=== PATIENT | male | born 1940 | race Caucasian/White ===

== ENCOUNTER 2017-07-08 00:33 | Inpatient (IN) | payer MEDICARE ==
[~2017-07-08] VITALS: Ht 180.3 cm; Wt 65.0 kg
[~2017-07-08 00:33] MED LIST: no home meds
[2017-07-08] MEDS ORDERED: SODIUM CHLORIDE 0.9% 1,000 ML IV ONE (01:13)
[2017-07-08] MEDS ORDERED: ONDANSETRON 2MG/ML, 2ML ONE (01:27)
[2017-07-08] MEDS ORDERED: LORazepam 2 MG/ML, 1ML ONE (01:28)
[2017-07-08] MEDS ORDERED: ONDANSETRON 2MG/ML, 2ML IVPush ONE (01:30)
[2017-07-08] MEDS ORDERED: SODIUM CHLORIDE FLUSH 10ML SYR IVF ONE (01:30)
[2017-07-08] MEDS ORDERED: LORazepam 2 MG/ML, 1ML IVPush ONE (01:30)
[2017-07-08] MEDS ORDERED: LEVO25PO PO (02:13)
[2017-07-08] MEDS ORDERED: CHEMO MED PO (02:13)
[2017-07-08 02:19] LABS: HEMATOCRIT 43.1 % (39.2-51.8); HEMOGLOBIN 14.4 g/dL (13.7-18.0); WHITE BLOOD COUNT 6.4 x10^3/uL (3.4-10)
[2017-07-08 02:29] LABS: BLOOD UREA NITROGEN 13 mg/dL (7-18)
[2017-07-08 03:32] VITALS: BP 130/73
[2017-07-08 07:49] VITALS: BP 127/71
[2017-07-08 13:58] VITALS: BP 119/71
[2017-07-08] MEDS ORDERED: ENOXAPARIN 40 MG/0.4 ML SQ SCH (19:30)
[2017-07-08] MEDS ORDERED: DOCUSATE 100 MG CAPSULE PO PRN (19:30)
[2017-07-08] MEDS ORDERED: PLEASE ENTER ALLERGIES MC SCH ×2 (19:30)
[2017-07-08] MEDS ORDERED: ONDANSETRON ODT 4 MG PO PRN (19:30)
[2017-07-08] MEDS ORDERED: ACETAMINOPHEN 325 MG TABLET PO PRN (19:30)
[2017-07-08 19:49] VITALS: BP 123/77
[2017-07-08] MEDS: LORazepam 1MG TABLET PO PRN (19:59)
[2017-07-09 01:44] VITALS: BP 110/60
[2017-07-09 07:17] VITALS: BP 141/70
[2017-07-09] MEDS: LORazepam 1MG TABLET PO PRN (08:26)
[2017-07-11] MEDS ORDERED: CARB1TAB44 PO (16:03)
[2017-07-11] MEDS ORDERED: CARB1TAB22 PO (16:03)
== END 2017-07-09 12:31 | disposition left against medical advice (07) | DRG 92 ==
LOC: ED 00:56 → EDIP 03:24 → 4NOR 03:26
PROVIDERS: ADMIT Surgery; ATTEND Surgery
DX: T85.113A Breakdown (mechanical) of implanted electronic neurostimulator, generator, initial encounter (principal); C19 Malignant neoplasm of rectosigmoid junction; G20 Parkinson's disease; C61 Malignant neoplasm of prostate; F41.9 Anxiety disorder, unspecified; G25.0 Essential tremor; Z85.038 Personal history of other malignant neoplasm of large intestine; Z85.46 Personal history of malignant neoplasm of prostate; Z87.891 Personal history of nicotine dependence; Z93.3 Colostomy status
CPT/HCPCS: 36415; 80048; 82040; 85025; 96374; 96375; J1650; J2405; J2060; J7030

== ENCOUNTER 2017-07-13 11:03 | Observation (INO) | payer MEDICARE ==
[~2017-07-13] VITALS: Ht 180.3 cm; Wt 64.8 kg
[~2017-07-13 11:03] MED LIST changes: +BACITRACIN 50,000 UNIT ONE; +BACITRACIN OINT 500U/GM, 15 GM ONE; +BUPIVACAINE/PF 0.5% ONE; +CARB1TAB22 PO; +CARB1TAB44 PO; +CHEMO MED PO; +EPINEPHRINE 1 MG/ML, 1ML ONE; +LEVO25PO PO; +THROMBIN 5,000 UNIT VIAL TP ONE
[2017-07-13] MEDS ORDERED: LACTATED RINGERS 1,000 ML IV SCH (11:54)
[2017-07-13] MEDS ORDERED: FENTANYL PF 100 MCG/2ML ONE (13:49)
[2017-07-13] MEDS ORDERED: ONDANSETRON 2MG/ML, 2ML ONE (13:51)
[2017-07-13] MEDS ORDERED: CEFAZOLIN 1,000 MG ONE (13:51)
[2017-07-13] MEDS ORDERED: DEXAMETHASONE 4 MG/ML, 1ML ONE (13:51)
[2017-07-13] MEDS ORDERED: PROPOFOL 10 MG/ML, 20ML ONE (13:51)
[2017-07-13] MEDS ORDERED: MIDAZOLAM 1 MG/ML, 2ML IV PRN (14:30)
[2017-07-13] MEDS ORDERED: FENTANYL PF 100 MCG/2ML IV PRN (14:30)
[2017-07-13] MEDS ORDERED: ONDANSETRON 2MG/ML, 2ML IVPush PRN (14:30)
[2017-07-13] MEDS ORDERED: PROMETHAZINE 25 MG/ML, 1ML IV PRN (14:30)
[2017-07-13] MEDS ORDERED: MEPERIDINE/PF 25MG/0.5ML IVPush PRN (14:30)
[2017-07-13] MEDS ORDERED: HYDROmorphone 1 MG/ML, 1ML IV PRN (14:30)
[2017-07-13] MEDS ORDERED: ALBUTEROL SULFATE 2.5 MG/3 ML NPPB PRN (14:30)
[2017-07-13] MEDS ORDERED: OXYcodone 5 MG/5 ML ORAL.SOL UDC PO PRN (14:30)
[2017-07-13] MEDS ORDERED: ACETAMINOPHEN 325 MG TABLET PO PRN (14:30)
[2017-07-13] MEDS ORDERED: LABETALOL 5MG/ML, 20ML IV PRN (14:30)
[2017-07-13] MEDS ORDERED: hydrALAzine 20 MG/ML, 1ML IV PRN (14:30)
[2017-07-13 19:20] VITALS: BP 136/74
[2017-07-13] MEDS: CARBIDOPA/LEVODOPA CR 50 MG/200 MG TABLET PO SCH (21:00)
[2017-07-13] MEDS: LORazepam 1MG TABLET PO PRN (21:12)
[2017-07-13] MEDS: SODIUM CHLORIDE FLUSH 10ML SYR IVF SCH (21:12)
[2017-07-13] MEDS: CARBIDOPA/LEVODOPA 25 MG/100 MG TABLET PO SCH (21:12)
[2017-07-13 23:49] VITALS: BP 104/61
[2017-07-14] MEDS: LORazepam 1MG TABLET PO PRN ×2 (02:57→08:26)
[2017-07-14 03:25] VITALS: BP 144/78
[2017-07-14] MEDS: CARBIDOPA/LEVODOPA 25 MG/100 MG TABLET PO SCH (06:19)
[2017-07-14 07:35] VITALS: BP 118/74
[2017-07-14] MEDS: SODIUM CHLORIDE FLUSH 10ML SYR IVF SCH (08:26)
[2017-07-14] MEDS: CARBIDOPA/LEVODOPA CR 50 MG/200 MG TABLET PO SCH (08:26)
[2017-07-14 13:35] VITALS: BP 78/44
== END 2017-07-14 09:00 | disposition home or self-care (01) ==
LOC: OUT 11:03 → ORIP 18:27 → 4NOR 19:12
PROVIDERS: ADMIT Neurological Surgery; ATTEND Neurological Surgery
DX: G20 Parkinson's disease (principal); Z85.46 Personal history of malignant neoplasm of prostate
CPT/HCPCS: 36415; 61885; 71020; 85610; 85730; 93005; C1767; G0378; J0171; J0690; J1100; J2405; J2704; J3010; J3490; J7120